=== PATIENT | female | born 1960 | race American Indian/Alaskan Native ===

== ENCOUNTER 2022-06-09 04:32 | Emergency (ER) | payer SELFPAY ==
[2022-06-09] MEDS ORDERED: Nitroglycerin 0.4 MG Tab.SL SL ONE (04:35)
[2022-06-09] MEDS ORDERED: Aspirin 81 MG Tab.Chew PO ONE (04:35)
[2022-06-09 05:13] LABS: ANION GAP 15.1 mEq/L (7-13)
[2022-06-09] MEDS ORDERED: GI Cocktail Oral Solution 30 ML PO ONE (05:24)
== END 2022-06-09 07:30 | disposition home or self-care (01) ==
LOC: DL.ED 04:32
DX: R07.9 Chest pain, unspecified (principal); R73.9 Hyperglycemia, unspecified; Z20.822 Contact with and (suspected) exposure to COVID-19
CPT/HCPCS: 36415; 80053; 81003; 83605; 84484; 85025; 85379; 85610; 87040; 87635; 93005; 99285; A9270; 93010; 99284; U0002

== ENCOUNTER 2022-09-30 17:10 | Emergency (ER) | payer SELFPAY ==
[2022-09-30] MEDS: Hydrocortisone/Neomycin/Polymyxin B Otic Susp 10 ML Bottle EARRT ONE (21:18)
== END 2022-09-30 21:22 | disposition home or self-care (01) ==
LOC: DL.ED 17:10
DX: H60.331 Swimmer's ear, right ear (principal); F17.210 Nicotine dependence, cigarettes, uncomplicated; Z79.899 Other long term (current) drug therapy; Z90.49 Acquired absence of other specified parts of digestive tract
CPT/HCPCS: 99282; A9270

== ENCOUNTER 2022-10-01 23:25 | Emergency (ER) | payer SELFPAY ==
[2022-10-02] MEDS: cefTRIAXone 1 GM, Lidocaine 1% 2.1 ML IM ONE ×2 (01:24)
[2022-10-02] MEDS: Ketorolac 30 MG/ML SDV IM ONE (01:25)
== END 2022-10-02 01:36 | disposition home or self-care (01) ==
LOC: DL.ED 23:25
DX: H60.331 Swimmer's ear, right ear (principal); H60.501 Unspecified acute noninfective otitis externa, right ear
CPT/HCPCS: 96372; 99282; J0696; J1885

== ENCOUNTER 2025-01-25 22:54 | Emergency (ER) | payer OTHER ==
[2025-01-25] MEDS: Fluconazole 100 MG Tab PO ONE (23:29)
[2025-01-25] MEDS: diphenhydrAMINE 50 MG Cap PO ONE (23:43)
[2025-01-25] MEDS: Hydrocortisone 1% Crm 30 GM Tube TOP ONE (23:43)
== END 2025-01-25 23:49 | disposition home or self-care (01) ==
LOC: DL.ED 22:54
DX: B37.31 Acute candidiasis of vulva and vagina (principal); W57.XXXA Bitten or stung by nonvenomous insect and other nonvenomous arthropods, initial encounter
CPT/HCPCS: 99283; A9270; Q0163

== ENCOUNTER 2025-03-14 06:00 | Emergency (ER) | payer OTHER ==
[2025-03-14 06:40] LABS: APPEARANCE,URINE CLEAR (CLEAR); BILIRUBIN,URINE SMALL (NEGATIVE); COLOR,URINE YELLOW (YELLOW); GLUCOSE,URINE 500 (NEGATIVE); KETONES,URINE >=160 (NEGATIVE); LEUKOCYTE ESTERASE,URINE NEGATIVE (NEGATIVE); NITRITE,URINE NEGATIVE (NEGATIVE); OCCULT BLOOD,URINE TRACE-INTACT (NEGATIVE); PH,URINE 5.5 (5.0-9.0); PROTEIN,URINE NEGATIVE (NEGATIVE); UROBILINOGEN,URINE 0.2 mg/dL (0.2-1.0)
[2025-03-14] MEDS: Sodium Chloride 0.9% 1,000 ML IV ONE ×2 (06:49→09:49)
[2025-03-14 06:52] LABS: BASOPHILS PERCENT AUTO 0.2 % (0.0-1.0); EOSINOPHILS PERCENT AUTO 0.1 % (1.0-3.0); HEMOGLOBIN 17.6 g/dL (12.0-16.0); LYMPHOCYTES PERCENT AUTO 9.4 % (20.5-50.1); MEAN CORPUSCULAR HEMOGLOBIN 29.8 pg (27.0-34.0); MEAN CORPUSCULAR HGB CONC 33.8 g/dL (33.0-35.0); MONOCYTES PERCENT AUTO 2.6 % (2-8); NEUTROPHILS PERCENT AUTO 87.7 % (42.2-75.2); PLATELET COUNT,PLT 280 10^3/uL (150-450); RED BLOOD CELL COUNT 5.91 10^6/uL (4.2-5.4); WHITE BLOOD CELL COUNT,WBC 15.9 10^3/uL (5.0-10.0)
[2025-03-14] MEDS: fentaNYL 100 MCG/2 ML SDV IVPUSH ONE (06:52)
[2025-03-14 07:04] LABS: BACTERIA,URINE MODERATE /HPF (0-FEW/HPF); EPITHELIAL CELLS,URINE MANY /HPF (NOT SEEN); WBC,URINE 0-5 /HPF (0-5/HPF)
[2025-03-14 07:12] LABS: A/G RATIO 0.8; ALBUMIN 3.4 g/dL (3.4-5.0); ANION GAP 22.6 mEq/L (7-13); BILIRUBIN TOTAL 0.7 mg/dL (0.2-1.0); CALCIUM 9.3 mg/dL (8.5-10.1); CREATININE 1.06 mg/dL (0.55-1.02); EST CRCL DRUG DOSING (CG) 43.52 mL/min; POTASSIUM,K 4.6 mmol/L (3.5-5.1); PROTEIN TOTAL,TP 7.7 g/dL (6.4-8.2)
[2025-03-14] MEDS: Iopamidol 755 Mg/ML 100 ML Bottle IVPUSH ONE (08:21)
[2025-03-14] MEDS ORDERED: Glucagon,Human Recombinant 1 MG Vial IM PRN (09:45)
[2025-03-14] MEDS ORDERED: 50% Dextrose in Water 50 ML Syringe IVPUSH PRN (09:45)
[2025-03-14] MEDS: Insulin Regular, Human 100 Units/ML 10 ML Vial IV ONE (09:50)
[2025-03-14 10:01] LABS: O2 DELIVERY DEVICE ROOM AIR
[2025-03-14 10:04] LABS: O2 SATURATION VENOUS 69.8 % (60-80); PCO2 VENOUS 34 mmHg (41-51); PO2 VENOUS 44 mmHg (35-42)
[2025-03-14 10:05] LABS: BICARBONATE,VENOUS 16 mmol/l (19-25)
== END 2025-03-14 11:25 ==
LOC: DL.ED 06:00
DX: R10.13 Epigastric pain (principal); E10.65 Type 1 diabetes mellitus with hyperglycemia; I82.422 Acute embolism and thrombosis of left iliac vein; F17.200 Nicotine dependence, unspecified, uncomplicated; Z79.84 Long term (current) use of oral hypoglycemic drugs; Z90.49 Acquired absence of other specified parts of digestive tract
CPT/HCPCS: 36415; 74177; 80053; 81001; 82803; 82947; 83690; 84484; 85025; 93005; 96361; 96374; 99285; A9270; J3010; J7030; Q9967; 99284